=== PATIENT | female | born 1965 | race American Indian/Alaskan Native ===

== ENCOUNTER 2021-03-16 09:46 | Outpatient (CLI) | payer BC | END 2021-03-16 09:47 | disposition home or self-care (01) | LOC: LABHHL 09:46 | PROVIDERS: ATTEND Surgery | DX: N63.10 Unspecified lump in the right breast, unspecified quadrant (principal) | CPT/HCPCS: 88305 ==

== ENCOUNTER 2021-05-06 06:03 | Day surgery (SDC) | payer BC ==
[~2021-05-06 06:03] MED LIST: ACETAMINOPHEN 500 MG TAB PO SCH; CELECOXIB 200 MG CAP PO NR; GABAPENTIN 300 MG CAP PO NR; LACTATED RINGERS 1,000 ML IV SCH; SCOPOLAMINE TRANSDERMAL PATCH 72 HR TD NR
[2021-05-06] MEDS ORDERED: ceFAZolin/Water 2 GM/20 ML 2 GM/20 ML SYRINGE IV ONE ×2 (07:37→15:00)
[2021-05-06] MEDS ORDERED: BUPIVACAINE/PF (0.5%) 5 MG/1 ML 30 ML VIAL INFILTRATI ONE (07:43)
[2021-05-06] MEDS ORDERED: LIDOCAINE 1%/EPINEPHRINE 1:100,000 VIAL (20 ML) INFILTRATI ONE ×2 (07:43→09:39)
--- NOTE | 2021-05-06 07:47 | Anesthesia Consultation ---
Anesthesia Consult and Med Hx Date of service: 05/06/21 - Airway Anesthetic Teeth Evaluation: Good ROM Head & Neck: Adequate Mental/Hyoid Distance: Adequate Mallampati Class: Class III Intubation Access Assessment: Possibly Difficult - Pre-Operative Health Status ASA Pre-Surgery Classification: ASA1 Proposed Anesthetic Plan: General - Pulmonary Hx Smoking: No Hx Respiratory Symptoms: No - Cardiovascular System Hx Hypertension: No Hx Heart Attack/AMI: No Hx Percutaneous Transluminal Coronary Angioplasty (PTCA): No - Central Nervous System CVA: No - Endocrine Hx Renal Disease: No Hx Liver Disease: No Hx Insulin Dependent Diabetes: No Hx Non-Insulin Dependent Diabetes: No Hx Thyroid Disease: No - Other Systems Hx Obesity: Yes (BMI 31) - Additional Comments Anesthesia Medical History Comments: No prior GA. No FHx anesthetic complications.
[2021-05-06] MEDS ORDERED: HYDROmorphone 1 MG/1 ML INJ IV PRN (07:48)
[2021-05-06] MEDS ORDERED: HYDROcodone/ACETAMINOPHEN 5-325 MG TAB PO PRN (07:48)
[2021-05-06] MEDS ORDERED: ONDANSETRON 4 MG/2 ML INJ IV PRN ×2 (07:48→11:20)
--- NOTE | 2021-05-06 07:48 | Anesthesia Day of Surgery ---
Anesthesia Day of Surgery - Day of Surgery Patient Examined: Yes Patient H&P Reviewed: Yes Patient is NPO: Yes
[2021-05-06] MEDS: MIDAZOLAM 2 MG/2 ML INJ IV NR ×2 (08:00→08:41)
[2021-05-06] MEDS ORDERED: LIDOCAINE (1%) 10 MG/1 ML VIAL 20 ML MDV ONE (08:41)
[2021-05-06] MEDS ORDERED: dexAMETHasone 4 MG/ML VIAL ONE (08:41)
[2021-05-06] MEDS ORDERED: BUPIVACAINE/PF (0.25%) 2.5 MG/ML 30 ML VIAL INFILTRATI ONE (08:41)
[2021-05-06] MEDS ORDERED: fentaNYL 100 MCG/2 ML INJ ONE (08:45)
[2021-05-06] MEDS ORDERED: LIDOCAINE MPF (2%) 20 MG/1 ML VIAL 5 ML ONE (09:10)
[2021-05-06] MEDS ORDERED: HYDROmorphone 1 MG/1 ML INJ ONE (09:10)
[2021-05-06] MEDS ORDERED: propofoL 200 MG/20 ML VIAL IV ONE (09:10)
[2021-05-06] MEDS ORDERED: SODIUM CHLORIDE 0.9% IRR 1,500 ML BOTTLE IR ONE (09:40)
[2021-05-06] MEDS ORDERED: WATER FOR IRRIG STERILE 1,500 ML BOTTLE IR ONE (09:40)
[2021-05-06] MEDS ORDERED: dexAMETHasone 20 MG/5 ML VIAL ONE (09:57)
[2021-05-06] MEDS ORDERED: ONDANSETRON 4 MG/2 ML INJ ONE ×2 (09:57→11:13)
--- NOTE | 2021-05-06 10:18 | Operative Report ---
Operative Report Operative Report: Date of procedure: 05/06/2021 Preop diagnosis: Right breast lesion Postop diagnosis: Same Procedure: Open biopsy of right breast lesion Surgeon: Dr. Lerma Anesthesia: LMA general anesthesia with PEG 1 and PEG tube block Specimen: Right breast lesion with short stitch on the inferior margin and long stitch on the lateral margin Estimated blood loss: Minimal Findings: This is a 50-year-old female with a right breast lesion localized on ultrasound and mammogram. A minimally invasive biopsy as an outpatient was performed but was felt to be discordant with radiologic findings. Patient is taken to the OR and under LMA general anesthesia timeouts and consents are reviewed and are appropriately on the chart. In the preop area PEC 1 and PEC two blocks were completed by anesthesia. The right breast is prepped with ChloraPrep and draped in a sterile fashion. A curvilinear incision is made in the upper third of the nipple areolar complex. Electrocautery was used to elevate flaps superiorly and inferiorly. The area of concern is grasped with an Allis. Electrocautery was used to dissect posteri hanny until the posterior mammary fat pad is visualized. Margins are labeled with a short stitch on the inferior margin and a long stitch on the lateral margin. The wound is irrigated with sterile water. Hemostasis is good. The wound is closed with 3-0 Vicryl for the subcutaneous tissue and 4-0 Monocryl for the skin followed by Dermabond.
[2021-05-06 11:02] VITALS: BP 101/52
--- NOTE | 2021-05-06 13:04 | Post Anesthesia Evaluation ---
- Post Anesthesia Evaluation Patient Participated: Yes Airway Patent: Yes Stable Respiratory Function: Yes Nausea/Vomiting: Yes (improved with IV antiemetic) Temp > 96.8F: Yes Pain Manageable: Yes Adequeate Hydration: Yes Anesthesia Complications: No
== END 2021-05-06 11:45 | disposition home or self-care (01) ==
LOC: OR 06:03
PROVIDERS: ATTEND Surgery
DX: N63.10 Unspecified lump in the right breast, unspecified quadrant (principal); N60.81 Other benign mammary dysplasias of right breast; N64.89 Other specified disorders of breast; R92.0 Mammographic microcalcification found on diagnostic imaging of breast; E66.9 Obesity, unspecified; Z20.822 Contact with and (suspected) exposure to COVID-19; Z68.31 Body mass index [BMI] 31.0-31.9, adult
CPT/HCPCS: 19120; 64450; 88305; J0690; J1100; J1170; J2250; J2405; J2704; J3010; J3490; J7120; U0003